=== PATIENT | male | born 1995 | race Two or more races ===

== ENCOUNTER 2022-01-31 10:31 | Emergency (ER) | payer MEDICAID ==
[~2022-01-31] VITALS: Ht 165.1 cm; Wt 110.0 kg
[2022-01-31 12:20] VITALS: BP 147/82
[2022-01-31] MEDS ORDERED: IBUP800T27 PO (12:29)
[2022-01-31] MEDS ORDERED: IBUPROFEN 800 MG TAB PO ONE (12:30)
== END 2022-01-31 12:53 | disposition home or self-care (01) ==
LOC: EDBD 10:31 → ER 10:40
DX: S00.03XA Contusion of scalp, initial encounter (principal); Y04.2XXA Assault by strike against or bumped into by another person, initial encounter; Y93.89 Activity, other specified; Y92.89 Other specified places as the place of occurrence of the external cause; Y99.8 Other external cause status
CPT/HCPCS: 70450